=== PATIENT | male | born 1975 | race Caucasian/White ===

== ENCOUNTER 2022-06-29 12:07 | Outpatient (CLI) | payer OTHER, SELFPAY ==
--- NOTE | ~2022-06-29 | XR_ITS ---
AP view of the pelvis and AP and lateral views of the left hip Clinical history: Pain Findings: No acute fracture or dislocation is seen. Osseous alignment is anatomic. Bilateral hip and SI joint spaces are preserved. Soft tissues are unremarkable. Impression: No significant abnormality is seen. Reviewed, dictated and finalized at [facility]. Impression: No significant abnormality is seen.
== END 2022-06-29 12:08 | disposition home or self-care (01) ==
PROVIDERS: PCP Nurse Practitioner Family; Visit Provider Nurse Practitioner Family
DX: M25.552 Pain in left hip (principal)
CPT/HCPCS: 73502

== ENCOUNTER 2023-09-29 22:37 | Emergency (ER) | payer OTHER, SELFPAY ==
[2023-09-29 22:38] VITALS: BP 175/103; PULSE 83; RESP 20; TEMP 36.3; O2SAT 98
--- NOTE | 2023-09-29 23:08 | PC.NURSE ---
[facility]
== END 2023-09-29 23:47 | disposition left against medical advice (07) ==
LOC: ANHED 23:15
DX: T78.40XA Allergy, unspecified, initial encounter (principal)
CPT/HCPCS: 99199

== ENCOUNTER 2024-07-22 08:18 | Emergency (ER) | payer OTHER, SELFPAY ==
[2024-07-22 08:32] VITALS: BP 150/93; PULSE 80; RESP 16; TEMP 36.4; O2SAT 98
--- NOTE | 2024-07-22 09:03 | ED_ITS ---
HPI - Wound/Laceration General Chief Complaint: Wound/Laceration Stated Complaint: Cat Bite Time Seen by Provider: 07/22/24 09:03 Source: patient, RN notes reviewed and old records reviewed Mode of arrival: ambulatory Limitations: no limitations History of Present Illness HPI narrative: 48-year-old male who presents to [facility] with complaints being attacked by a cat on his right arm 2 days ago when he was in the garage. Patient reports that cat scratched him and also bit him around the elbow region with puncture wounds noted with some surrounding redness, denies any purulent drainage from sites. Patient reports that he has been cleansing arm with soap and water and has applied Neosporin ointment to areas. Patient reports also discomfort to his right ear with some decreased hearing, has had problems with his ears in past and has had ear tubes in his adulthood. Patient reports no drainage from ear. Patient reports that he does not know who owns cat that attacked him.. Onset (ago): day(s) (2) Extremity Location: Right: arm (upper and lower arm) Place: home Patient tetanus UTD: No Treatments prior to arrival: other (cleansed with soap and water and has applied Neosporin ointment) Related Data Allergies Allergy/AdvReac Type Severity Reaction Status Date / Time acetaminophen (From Vicodin) Allergy Itching Verified 09/29/23 22:43 hydrocodone (From Vicodin) Allergy Itching Verified 09/29/23 22:43 pollen extracts Allergy Swelling Verified 09/29/23 22:43 of the Eye Review of Systems Review of Systems: CONSTITUTIONAL: Denies fever, chills, or sweats. CARDIOVASCULAR: Denies chest pain, palpitations, or edema. RESPIRATORY: Denies cough or dyspnea.reports discomfort to his right ear reports has had history of ear problems GASTROINTESTINAL: Denies abdominal pain, nausea, vomiting SKIN: Reports redness and swelling with numerous scratches noted on right arm with no drainage noted and puncture hitchcock noted at elbow region with some surrounding redness. Denies purulent drainage, areas tender to palpation MUSCULOSKELETAL: Denies myalgia. NEUROLOGIC: Denies headache, numbness All systems reviewed & are unremarkable except as noted in HPI and below PMFSH Past Medical History Medical History (Updated 07/23/24 @ 08:32 by Lesly Campbell NP) GERD (gastroesophageal reflux disease) Hyperlipidemia Hypertension Ear infection Surgical History Surgical History (Updated 07/22/24 @ 09:20 by Lesly Campbell NP) History of placement of ear tubes Social History Social History (Updated 07/23/24 @ 08:27 by Lesly Campbell NP) Smoking status: Never smoker Alcohol intake: current Alcohol use details: social Substance use type: does not use Living arrangements: with family Gender identity (if verbalized by the patient): Male Comments At time of signature, agree with nursing past medical, surgical, social and family history. There is no relevant family history pertinent to the presenting complaint Exam Narrative: GENERAL: Well-appearing, well-nourished, and in no acute distress. HEAD: Normocephalic, atraumatic. EYES: PERRLA and EOMI. ENT: Nares clear, no rhinorrhea or epistaxis. Mucous membranes moist.TM's normal with no redness or swelling, right ear canal is red with some irritation no acute swelling of canal, some soft wax noted to ear canal. NECK: Supple.no lymphadenopathy CHEST: Clear to auscultation. No respiratory distress.no cough or congestion SAO2 98% on room air HEART: Regular rate and rhythm. No murmur heard. Normal peripheral pulses. ABDOMEN: Soft, nontender, nondistended, normal active bowel sounds. EXTREMITIES: Normal range of motion. No edema. SKIN: Warm, dry. Erythema, induration, tenderness, warmth with scratches to right arm and areas of puncture hitchcock at elbow area with some surrounding redness no drainage noted. No acute warmth or any fluctuation of tissue NEURO: No focal deficits. Alert and oriented x3. Course Course Emergency Course: Patient is aware of diagnosis, understands and agrees to treatment plan. Anticipatory guidance given. Patient agrees to follow-up as directed and is aware of reasons to seek care at the emergency department. Portions of this record may have been created with voice recognition software Level of Care: Express Care Visit Vital Signs Vital signs: Vital Signs Temperature 36.4 C 07/22/24 08:32 Pulse Rate 80 07/22/24 08:32 Respiratory Rate 16 07/22/24 08:32 Blood Pressure 150/93 H 07/22/24 08:32 Pulse Oximetry 98 07/22/24 08:32 Temperature 36.4 C 07/22/24 08:32 Pulse Rate 80 07/22/24 08:32 Respiratory Rate 16 07/22/24 08:32 Blood Pressure 150/93 H 07/22/24 08:32 Pulse Oximetry 98 07/22/24 08:32 Reviewed MDM - Wound/Laceration MDM Narrative Medical decision making narrative: 914 Patient received tetanus update while in clinic today with no reaction noted. Differential Diagnosis Differential diagnosis: Likely other (sratches to right arm, cat bite with punctures at right elbow area, right ear discomfort with decreased hearing, otitis externa) Medical Records Attestation: I reviewed the patient's medical records. Critical Care Time Critical Care Time Critical Care Time: No Discharge Plan Discharge Clinical Impression: Cat bite of right upper arm Qualifiers: Encounter type: initial encounter Qualified Code(s): S41.151A - Open bite of right upper arm, initial encounter; W55.01XA - Bitten by cat, initial encounter Cat scratch of forearm Qualifiers: Encounter type: initial encounter Laterality: right Qualified Code(s): S50.811A - Abrasion of right forearm, initial encounter; W55.03XA - Scratched by cat, initial encounter Otitis externa Qualifiers: Otitis externa type: diffuse Chronicity: acute Laterality: right Qualified Code(s): H60.311 - Diffuse otitis externa, right ear Patient Disposition: Home Condition: Stable Instructions: Antibiotic Form, Animal Bite (ED), Swimmer's Ear (GEN) Additional Instructions: wash areas of wounds on right arm with liquid Dial soap twice daily and apply mupirocin ointment watch for increasing infection--redness, swelling, drainage Tylenol or ibuprofen for any fever pain follow up with PCP in 7-10 days for a wound check recheck if develop fever, chills, increasing symptom Go to the ER if your symptoms become worse of if ANY new symptoms develop Zyrtec or Claritin daily put prescribed ear drops in right ear twice daily as prescribed If your symptoms persist, change or worsen significantly before you can contact your personal physician then please, without delay, go to the emergency department for further evaluation. Follow-up with PCP in 7-10 days or sooner if needed Follow up with PCP soon in regards to your blood pressure which is elevated above threshold for referral. Blood pressure above 120/80 may indicate pre- hypertension. 150/93 Patient Language: Mosoth[place] Prescriptions: New ofloxacin 0.3 % drops 5 drp RIGHT EAR BID 7 Days Qty: 10 0RF amoxicillin-pot clavulanate 875-125 mg tablet 1 tablet PO Q12H Qty: 20 0RF Rx Instructions: take all doses of oral antibiotics mupirocin [Centany] 2 % ointment 1 applic topical BID Qty: 22 0RF Rx Instructions: apply to wound twice daily after cleansing and rinsing Follow-up/Referrals: PHYSICIAN,[facility] [Primary Care Provider] - Time of Disposition: 09:31 Quality Tisha Coma Scale Eyes: Open Verbal: Oriented and Alert Motor: Follows Commands Tisha Coma Total Score: 15
[2024-07-22] MEDS: TETANUS,DIPHTHERIA,AC PERTUSSIS ADULT (0.5 ML) BOOSTRIX IM (09:17)
== END 2024-07-22 09:33 | disposition home or self-care (01) ==
PROVIDERS: Emergency Provider Registered Nurse
DX: S41.131A Puncture wound without foreign body of right upper arm, initial encounter (principal); W55.01XA Bitten by cat, initial encounter; S50.811A Abrasion of right forearm, initial encounter; H60.311 Diffuse otitis externa, right ear; Z23 Encounter for immunization; I10 Essential (primary) hypertension; E78.5 Hyperlipidemia, unspecified; K21.9 Gastro-esophageal reflux disease without esophagitis
CPT/HCPCS: 90471; 90715; 99203; G0463